=== PATIENT | male | born 1995 | race African-American/Black ===

== ENCOUNTER 2017-04-15 02:37 | Emergency (ER) | payer MEDICAID ==
[~2017-04-15] VITALS: Ht 165.1 cm; Wt 75.0 kg
[2017-04-15 04:55] VITALS: BP 119/66
[2017-04-15] MEDS ORDERED: CEFTRIAXONE SODIUM 250 MG/VIAL IM ONE (05:00)
[2017-04-15] MEDS ORDERED: AZITHROMYCIN 500 MG TABLET PO ONE (05:00)
[2017-04-15 05:28] LABS: CLARITY URINE CLEAR (CLEAR); COLOR URINE YELLOW (YELLOW); GLUCOSE URINE NEGATIVE (NEGATIVE); KETONES URINE NEGATIVE (NEGATIVE); LEUKOCYTE ESTERASE URINE 1+ (NEGATIVE); NITRITE URINE NEGATIVE (NEGATIVE); OCCULT BLOOD URINE NEGATIVE (NEGATIVE); PH URINE 5.5 (4.5-8.0); PROTEIN URINE NEGATIVE (NEGATIVE); SPECIFIC GRAVITY URINE 1.022 (1.005-1.030); UROBILINOGEN URINE 0.2 E.U./dL (0.2-1.0)
[2017-04-18 04:12] LABS: CHLAMYDIA TRACHOMATIS NAA Positive (Negative); NEISSERIA GONORRHOEAE NAA Positive (Negative)
== END 2017-04-15 06:46 | disposition home or self-care (01) ==
LOC: ER 02:37
DX: A56.8 Sexually transmitted chlamydial infection of other sites (principal); F12.90 Cannabis use, unspecified, uncomplicated; Z90.49 Acquired absence of other specified parts of digestive tract
CPT/HCPCS: 81001; 87491; 87591; 96372; 99284; J0696